=== PATIENT | female | born 2000 | race Caucasian/White ===

== ENCOUNTER 2024-07-29 23:01 | Emergency (ER) | payer MEDICAID ==
[~2024-07-29] VITALS: Ht 165.1 cm; Wt 83.6 kg
[2024-07-29] MEDS ORDERED: NS 1,000 ML IV ONE (23:30)
[2024-07-29] MEDS ORDERED: Acetaminophen 325 MG TAB PO ONE (23:30)
[2024-07-29] MEDS ORDERED: Ketorolac 15 MG/ML VIAL IV ONE (23:30)
[2024-07-29 23:44] LABS: BASO % 0.2 % (0.0-2.0); EOS # 0.1 K/mm3 (0.0-0.7); EOS % 1.4 % (0.0-4.0); GRAN # 6.7 K/mm3 (1.4-6.5); GRAN % 80.8 % (42.2-75.2); LYMPH # 1.1 K/mm3 (1.2-3.4); LYMPH % 13.4 % (20.0-51.0); MEAN CELL VOLUME 90 fl (80.0-100.0); MEAN CORPUSCULAR HGB CONC 32 g/dl (33.0-37.0); MEAN PLATELET VOLUME 8.9 fl (7.4-10.4); MONO # 0.3 K/mm3 (0.1-0.6); MONO % 3.8 % (1.7-9.3); PLATELET COUNT 296 K/mm3 (130-400); RED BLOOD COUNT 3.37 M/mm3 (4.10-5.30); REDCELL DISTRIBUTION WIDTH-CV 13.7 % (11.5-14.5)
[2024-07-29 23:46] LABS: HEMATOCRIT 30.3 % (37.0-47.0); HEMOGLOBIN 9.7 g/dl (12.5-16.0); MEAN CORPUSCULAR HEMOGLOBIN 29 pg (27-31)
[2024-07-30 00:04] LABS: ALBUMIN 3.5 g/dL (3.5-5.0); BILIRUBIN,TOTAL 0.5 mg/dL (0.2-1.2); CALCIUM 9.1 mg/dL (8.4-10.2); CREATININE, serum 0.76 mg/dL (0.57-1.11); POTASSIUM 3.4 mEq/L (3.5-4.5); TOTAL PROTEIN 7.5 g/dl (6.2-8.1)
[2024-07-30 00:09] LABS: TROPONIN-I 0.016 ng/mL (0.00-0.033)
[2024-07-30] MEDS ORDERED: NS 100 ML IV ONE (00:40)
[2024-07-30] MEDS ORDERED: Iohexol 300 - 100 ML VIAL IV ONE (00:40)
[2024-07-30 00:45] VITALS: TEMP 102.3
[2024-07-30 00:45] LABS: C-REACTIVE PROTEIN 4.03 mg/dL (0.00-0.50)
[2024-07-30] MEDS ORDERED: NS 1,000 ML IV ONE (01:15)
[2024-07-30 02:33] LABS: PH 5.5 (5.0-8.5); URINE APPEARANCE CLOUDY (CLEAR/HAZY); URINE BLOOD 3+ (NEGATIVE); URINE COLOR YELLOW (YELLOW); URINE GLUCOSE NEGATIVE (NEGATIVE); URINE KETONE NEGATIVE (NEGATIVE); URINE NITRATE NEGATIVE (NEGATIVE); URINE PROTEIN(semi-quant) 1+ (NEGATIVE)
[2024-07-30 02:35] LABS: COLLECTION METHOD CLEAN CATCH
[2024-07-30] MEDS ORDERED: Sulfamethoxazole/Trimethoprim 800-160 MG TAB PO ONE (03:30)
[2024-07-30] MEDS ORDERED: BACTRIM DS 8001 TAB PO (03:35)
[2024-07-30 03:49] VITALS: BP 112/80; PULSE 82
== END 2024-07-30 03:49 | disposition home or self-care (01) ==
LOC: COL.ER 23:01
PROVIDERS: Emergency Medicine
DX: O86.20 Urinary tract infection following delivery, unspecified (principal); Z88.1 Allergy status to other antibiotic agents
CPT/HCPCS: J1885; J7030; Q9967